=== PATIENT | female | born 1950 | race Caucasian/White ===

== ENCOUNTER 2016-10-24 09:57 | Observation (INO) | payer MEDICARE ==
[2016-10-24] MEDS ORDERED: ACETAMINOPHEN 325 MG TABLET PO ONE (10:28)
[2016-10-24] MEDS ORDERED: ONDANSETRON HCL 4 MG/2 ML VIAL ONE (10:38)
[2016-10-24 10:52] LABS: ALBUMIN 3.6 g/dL (3.5-5.0); ALKALINE PHOSPHATASE 51 U/L (38-126); ALT 42 U/L (9-52); AST 32 U/L (14-36); BILIRUBIN, DIRECT 0.1 mg/dL (0.0-0.4); BILIRUBIN, TOTAL 0.6 mg/dL (0.2-1.3); BLOOD UREA NITROGEN 14 mg/dL (7-17); CALCIUM 8.6 mg/dL (8.4-10.2); CHLORIDE 102 mmol/L (98-107); CREATININE 0.6 mg/dL (0.5-1.0); EST GLOMERULAR FILTRATION RATE > 60 mL/min; GLUCOSE 91 mg/dL (70-100); LIPASE 277 U/L (23-300); POTASSIUM 3.7 mmol/L (3.5-5.1); SODIUM 134 mmol/L (137-145); TOTAL PROTEIN 6.5 g/dL (6.3-8.2)
[2016-10-24 10:58] LABS: INFLUENZA A/B INF A & B NEGATIVE
[2016-10-24 11:03] LABS: TROPONIN I 0.054 ng/mL (0.00-0.034)
[2016-10-24 11:09] LABS: HEMATOCRIT 37.9 % (36.0-48.0); HEMOGLOBIN 12.3 g/dL (12.0-16.0); MEAN CELL VOLUME 87.6 fL (80.0-100.0); MEAN CORPUS. HGB CONCENTRATION 32.4 g/dL (32.0-36.0); MEAN CORPUSCULAR HEMOGLOBIN 28.4 pg (29.0-35.0); MEAN PLATELET VOLUME 6.9 fL (7.4-10.4); PLATELET COUNT 354 X 10^3uL (130-440); RED BLOOD COUNT 4.32 X 10^6uL (4.20-6.10); RED CELL DISTRIBUTION WIDTH 14.6 % (11.5-14.5); WHITE BLOOD COUNT 17.4 X 10^3uL (3.9-10.7)
[2016-10-24 11:10] LABS: BAND% (Manual) 17 % (0.0-1.0); BASOPHIL % (Manual) 0 % (0.0-2.0); EOSINOPHIL % (Manual) 1 % (0.0-6.0); LYMPHOCYTE % (Manual) 19 % (20.0-40.0); METAMYELOCYTE % (Manual) 0 % (0); MONOCYTE % (Manual) 5 % (2.0-10.0)
[2016-10-24 11:11] LABS: NEUTROPHIL % (Manual) 59 % (54.0-75.0); PROMYELOCYTE % (Manual) 0 % (0)
[2016-10-24 11:12] LABS: NUCLEATED RED BLOOD CELL 0 #/100WBC (0-0); PLASMA CELL % (Manual) 0 (0); PLATELET ESTIMATE ADEQUATE
[2016-10-24] MEDS ORDERED: LEVOFLOXACIN/D5W 150 ML IV ONE (12:12)
[2016-10-24] MEDS ORDERED: HOME MEDICATION LIST NEEDED 1 EA EACH MC ONE (13:07)
--- NOTE | 2016-10-24 13:42 | ER PHYSICIAN DOCUMENTATION ---
Physician Documentation [facility] Name:John Mann Age:66 yrs Sex:Female :1950 Arrival Date:10/24/2016 Time:09:57 Bed4 Private MD:Hemanth Segovia ED, Scott Disposition: 10/24/16 12:14 Admit ordered for Hemanth Segovia. Preliminary diagnosis are Diarrhea, Hypoxia, Chest Pain, Leukocytosis- Unspecified. - Bed requested for Medical/Surgical. - Condition is Serious. - Problem is new. - Symptoms have improved. 23 HR OBS No HPI: 10/24 12:04 This 66 yrs old Female presents to ER via Private Vehicle with complaints of sc Nausea/Vomiting/Diarrhea. 12:04 The patient presents to the emergency department with nausea, with diarrhea, that is sc continuous, described as watery, without any complaints of abdominal pain. Onset: The symptom(s)/episode began/occurred yesterday. Possible causes: unknown, antibiotics, bad food exposure, recent hospn for sbo and c. diff, finished vanc 3 weeks ago. Associated signs and symptoms: Pertinent positives: diarrhea, nausea. Severity of symptoms: At their worst the symptoms were severe. Historical: - Allergies: Clindamycin; Sulfa (Sulfonamide Antibiotics); PCN; hydroxychloroquinine; Erythromycin; - Home Meds: 1. Estrace oral 2. rosuvastatin 10 mg oral tab 1 tab once daily 3. nebivolol 5 mg oral tab 1 tab once daily 4. prednisone 2 mg oral TbEC 1 tab once daily 5. aspirin Oral 6. Wilson 5-325 mg oral tab as needed for pain 7. Fluoxetine Oral 8. Synthroid 50 mcg oral tab 9. diclofenac sodium oral 10. cyclobenzaprine Oral 11. calcium carbonate 500 mg calcium (1,250 mg) oral cap - PMHx: LUPUS; osteopenia; CAD; DEPRESSION; ANXIETY; HYPOTHYROIDISM; hyperlipidemia; Bowel Obstruction (September 14, 2016); Myocardial Infarction - non ST elevation (September 14, 2016); - Tetanus: < 10 years. - Ebola Screening: : Patient denies exposure to infectious person. Patient denies travel to an Ebola-affected area in the 21 days before illness onset. . - Immunization history: Flu Vaccine < 1 year. - Social history: Smoking status: Patient states was never smoker of tobacco. Patient/guardian denies using alcohol, marijuana. ROS: 12:05 Eyes: Negative for injury, pain, redness, and discharge. ms ENT: Negative for injury, pain, and discharge. Neck: Negative for injury, pain, and swelling. Cardiovascular: Negative for chest pain, palpitations, and edema. Respiratory: Negative for shortness of breath, cough, wheezing, and pleuritic chest pain. Back: Negative for injury and pain. Skin: Negative for injury, rash, and discoloration. 12:05 Neuro: Negative for headache, weakness, numbness, tingling, and seizure. sc 12:05 Constitutional: Positive for fatigue, malaise. 12:05 Abdomen/GI: Positive for diarrhea, Negative for abdominal distension, dysphagia, hematemesis, black/tarry stool. Exam: Head/Face: Normocephalic, atraumatic. Eyes: Pupils equal round and reactive to light, extra-ocular motions intact. Lids and lashes normal. Conjunctiva and sclera are non-icteric and not injected. Cornea within normal limits. Periorbital areas with no swelling, redness, or edema. Neck: Trachea midline, no thyromegaly or masses palpated, and no cervical lymphadenopathy. Supple, full range of motion without nuchal rigidity, or vertebral point tenderness. No meningismus. Chest/axilla: Normal chest wall appearance and motion. Nontender with no deformity. No lesions are appreciated. Cardiovascular: Regular rate and rhythm with a normal S1 and S2. No gallops, murmurs, or rubs. Normal PMI, no JVD. No pulse deficits. Respiratory: Lungs have equal breath sounds bilaterally, clear to auscultation and percussion. No rales, rhonchi or wheezes noted. No increased work of breathing, no retractions or nasal flaring. Back: No spinal tenderness. No costovertebral tenderness. Full range of motion. 12:06 Neuro: Awake and alert, GCS 15, oriented to person, place, time, and situation. ms Cranial nerves II-XII grossly intact. Motor strength 5/5 in all extremities. Sensory grossly intact. Cerebellar exam normal. Normal gait. 12:06 Constitutional: The patient appears alert, awake, listless. 12:06 ENT: Mouth: Oral mucosa: dry. 12:06 Abdomen/GI: Inspection: abdomen appears normal, Bowel sounds: hyperactive, Palpation: abdomen is soft and non-tender, rebound tenderness, is not appreciated. 12:06 Skin: Turgor: is poor. Vital Signs: 10:15 BP 122 / 37; Pulse 94; Resp 18; Temp 99.2; Pulse Ox 92% on R/A; st 10:32 BP 106 / 48; Pulse 89; Pulse Ox 93% on 2 lpm NC; st 10:52 Temp 101.0; st 11:00 BP 114 / 51; Pulse 87; Pulse Ox 95% 2 lpm ; st 12:00 Pulse 87; Pulse Ox 96% ; st 12:05 Temp 100.7; st 12:30 BP 103 / 39; Pulse 84; Pulse Ox 95% on 2 lpm NC; st 13:00 BP 98 / 31; Pulse 80; Pulse Ox 97% ; st 13:30 BP 92 / 43; Pulse 79; Pulse Ox 96% on R/A; st MDM: 10:36 Patient medically screened. ms 12:07 Differential diagnosis: Nonspecific abd pain, diverticulitis, viral gastroenteritis, sc gastroenteritis, elevated trop and ddimer, wbc 17k ? sepsis or recurrent cdiff and pe?. Data reviewed: vital signs, nurses notes, old medical records, lab test result(s), EKG, and as a result, I will admit patient. Counseling: I had a detailed discussion with the patient and/or guardian regarding: the historical points, exam findings, and any diagnostic results supporting the discharge/admit diagnosis, lab results, radiology results, the need for further work-up and treatment in the hospital. Physician consultation: Hemanth Segovia MD was called at 12:12, was contacted at 12:12, regarding admission, need to come to ED to see patient, and will see patient in ED, shortly. 12:31 ECG:. ms 10/24 10:58 Order name: INFLUENZA A/B [facility] 10/24 11:03 Interpretation: Normal. ms 10/24 11:01 Order name: BASIC METABOLIC PANEL [facility] 10/24 11:03 Interpretation: Normal Except: SODIUM 134. ms 10/24 11:01 Order name: HEPATIC PANEL [facility] 10/24 11:03 Interpretation: Normal. ms 10/24 11:01 Order name: LIPASE [facility] 10/24 11:03 Interpretation: Normal. ms 10/24 11:05 Order name: TROPONIN I [facility] 10/24 11:08 Interpretation: Abnormal: TROPONIN I 0.054. ms 10/24 11:10 Order name: CBC W/ MANUAL DIFFERENTIAL [facility] 10/24 11:32 Interpretation: Abnormal: WHITE BLOOD COUNT 17.4. ms 10/24 11:39 Order name: DDIMER; Complete Time: 12:00 [facility] 10/24 12:00 Interpretation: Abnormal: DDIMER 788. ms 10/24 12:24 Order name: LACTATE; Complete Time: 12:33 [facility] 10/24 12:33 Interpretation: Normal. ms 10/24 10:10 Order name: Iv Saline Lock; Complete Time: 10:34 10/24 10:34 Order name: Oxygen; Complete Time: 10:34 10/24 10:53 Order name: 12-lead EKG; Complete Time: 10:59 ms 10/24 10:53 Order name: Urine Dip; Complete Time: 12:00 ms EC:31 Rate is 89 beats/min. Rhythm is regular. QRS [place] is Normal. MD interval is normal. QRS sc interval is normal. QT interval is normal. No Q waves. T waves are Normal. ST Segment is depressed in leads V2, V3. Clinical impression: Abnormal EKG without significant change. Interpreted by me. Reviewed by me. Dispensed Medications: 10:33 Drug: Acetaminophen 975 mg; Route: PO; st 12:40 Follow up: Response: fever comming down. st 10:34 Drug: NS 0.9% 500 ml; Route: IV; Rate: bolus; Site: left antecubital; st 11:00 Follow up: IV Status: Completed infusion; IV Intake: 1000ml st 10:40 Drug: Zofran 4 mg; Route: IVP; Infused Over: 2 mins; Site: left antecubital; st 12:40 Follow up: Response: Nausea is decreased st 12:05 Drug: Levaquin 750 mg; Route: IVPB; Site: left antecubital; st 13:35 Follow up: IV Status: Completed infusion; IV Intake: 150ml st 13:38 Drug: NS 0.9% 1000 ml; Route: IV; Rate: 150 ml/hr; Site: left antecubital; st 13:38 Follow up: IV Status: Infusion continued upon admission st Point of Care Testing: Urine Dip: 11:32 pH: 7.0; ; Specific K[place]: 1.020; Ketones: Trace; Glucose: Negative; Leukocytes: st Negative; Nitrite: Negative ; Blood: Small (+); Bilirubin: Negative ; Urobilinogen: Normal Signatures: Dena Young, Kelsey Paris RN, RN RN rs Chew, Scott, MD MD ms
--- NOTE | 2016-10-24 13:42 | ER NURSING DOCUMENTATION ---
Nurse's Notes [facility] Name:John Mann Age:66 yrs Sex:Female :1950 Arrival Date:10/24/2016 Time:09:57 Bed4 Private MD:Hemanth Segovia Diagnosis:Diarrhea;Hypoxia;Chest Pain;Leukocytosis- Unspecified Presentation: 10/24 10:11 Presenting complaint: Patient states: pt states she started to have N/D and body aches st yesterday. Symptoms have been getting worst and she feels prity bad now. Transition of care: Home. Notified ED Physician of Dr. Rees notified. 10:11 Acuity: HUMBERTO 3 st 10:11 Method Of Arrival: Private Vehicle st Triage Assessment: 10:13 General: Appears ill, uncomfortable, Behavior is cooperative, Reports feeling ill for st 12-24 hours. Pain: Complains of pain in body aches and headache Unable to use pain scale. when asked to rate her pain she states she feels sick. EENT: Oral mucosa is dry. Neuro: No deficits noted. Cardiovascular: Capillary refill < 3 seconds Heart tones present. Respiratory: Airway is patent Respiratory effort is even, unlabored, Respiratory pattern is regular, symmetrical, Breath sounds are clear bilaterally. Reports cough that is non-productive. GI: Abdomen is flat, non- distended Abd is soft and non tender X 4 quads. Reports diarrhea, nausea. Musculoskeletal: Reports body aches and feeling generally weak. Historical: - Allergies: Clindamycin; Sulfa (Sulfonamide Antibiotics); PCN; hydroxychloroquinine; Erythromycin; - Home Meds: 1. Estrace oral 2. rosuvastatin 10 mg oral tab 1 tab once daily 3. nebivolol 5 mg oral tab 1 tab once daily 4. prednisone 2 mg oral TbEC 1 tab once daily 5. aspirin Oral 6. Lynn 5-325 mg oral tab as needed for pain 7. Fluoxetine Oral 8. Synthroid 50 mcg oral tab 9. diclofenac sodium oral 10. cyclobenzaprine Oral 11. calcium carbonate 500 mg calcium (1,250 mg) oral cap - PMHx: LUPUS; osteopenia; CAD; DEPRESSION; ANXIETY; HYPOTHYROIDISM; hyperlipidemia; Bowel Obstruction (September 14, 2016); Myocardial Infarction - non ST elevation (September 14, 2016); - Tetanus: < 10 years. - Ebola Screening: : Patient denies exposure to infectious person. Patient denies travel to an Ebola-affected area in the 21 days before illness onset. . - Immunization history: Flu Vaccine < 1 year. - Social history: Smoking status: Patient states was never smoker of tobacco. Patient/guardian denies using alcohol, marijuana. Screenin:16 Infectious Disease Risk None. Abuse screen: Denies threats or abuse. Denies injuries st from another. pt feels safe at home. Nutritional screening: No deficits noted. Assessment: 12:00 General: pt color is better. pt interacts more and is feeling better.. st 13:36 General: Dr. Rees informed of dropping BP. . st Vital Signs: 10:15 BP 122 / 37; Pulse 94; Resp 18; Temp 99.2; Pulse Ox 92% on R/A; st 10:32 BP 106 / 48; Pulse 89; Pulse Ox 93% on 2 lpm NC; st 10:52 Temp 101.0; st 11:00 BP 114 / 51; Pulse 87; Pulse Ox 95% 2 lpm ; st 12:00 Pulse 87; Pulse Ox 96% ; st 12:05 Temp 100.7; st 12:30 BP 103 / 39; Pulse 84; Pulse Ox 95% on 2 lpm NC; st 13:00 BP 98 / 31; Pulse 80; Pulse Ox 97% ; st 13:30 BP 92 / 43; Pulse 79; Pulse Ox 96% on R/A; st ED Course: 09:59 Patient arrived in ED. lm3 10:00 Hemanth Segovia MD is Private Physician. lm3 10:05 Dena Young RN is Primary Nurse. st 10:09 Hardy Rees MD is Attending Physician. sc 10:[address] 10:[address] 10:16 Valuables Remains with patient Patient has correct armband on for positive st identification. Bed in low position. Call light in reach. Side rails up X 1. Pulse Ox - RN Monitoring Only NIBP On - RN Monitoring Only. 10:33 Inserted saline lock: 20 gauge in left antecubital area and blood collected. st 10:33 Door closed. Noise minimized. Lights dimmed. Verbal reassurance given. rs 10:34 Oxygen Oxygen administration via nasal cannula @ 2L/min. st 10:38 Resting quietly. rs 11:03 EKG done per protocol. Performed by ED Staff. Shown to ED physician. st 12:12 Hemanth Segovia MD is Admitting Physician. sc Administered Medications: 10:33 Drug: Acetaminophen 975 mg; Route: PO; st 12:40 Follow up: Response: fever comming down. st 10:34 Drug: NS 0.9% 500 ml; Route: IV; Rate: bolus; Site: left antecubital; st 11:00 Follow up: IV Status: Completed infusion; IV Intake: 1000ml st 10:40 Drug: Zofran 4 mg; Route: IVP; Infused Over: 2 mins; Site: left antecubital; st 12:40 Follow up: Response: Nausea is decreased st 12:05 Drug: Levaquin 750 mg; Route: IVPB; Site: left antecubital; st 13:35 Follow up: IV Status: Completed infusion; IV Intake: 150ml st 13:38 Drug: NS 0.9% 1000 ml; Route: IV; Rate: 150 ml/hr; Site: left antecubital; st 13:38 Follow up: IV Status: Infusion continued upon admission st Point of Care Testing: Urine Dip: 11:32 pH: 7.0; ; Specific Burt: 1.020; Ketones: Trace; Glucose: Negative; Leukocytes: st Negative; Nitrite: Negative ; Blood: Small (+); Bilirubin: Negative ; Urobilinogen: Normal Intake: 11:00 IV: 1000ml; Total: 1000ml. st 13:35 IV: 150ml; Total: 1150ml. st Outcome: 12:14 Decision to Admit by Provider. ri 13:39 Admitted to Med/surg accompanied by nurse. st 13:39 Condition: improved 13:39 Instructed on need to admit 13:41 Patient [address] the ED. st Signatures: Dena Young RN RN st Stalker, Rachael, RN RN rs Chew, Scott, MD MD ri Vannessa Monroe lm3
[2016-10-24] MEDS ORDERED: NORMAL SALINE 1,000 ML IV SCH (14:00)
[2016-10-24 14:02] LABS: CKMB 0.82 ng/mL (0.00-2.37)
[2016-10-24 14:03] LABS: TROPONIN I 0.106 ng/mL (0.00-0.034)
[2016-10-24 14:25] LABS: URINE APPEARANCE CLEAR; URINE BILIRUBIN NEGATIVE (NEGATIVE); URINE COLOR YELLOW; URINE GLUCOSE NORMAL (NEGATIVE); URINE KETONE NEGATIVE (NEGATIVE); URINE LEUKOCYTE ESTERASE NEGATIVE (NEGATIVE); URINE NITRITE NEGATIVE (NEGATIVE); URINE PROTEIN NEGATIVE (NEG - TRACE); URINE UROBILINOGEN 0.2mg/dL (Normal) (NEG-1mg/dL)
[2016-10-24 14:26] LABS: URINE BLOOD TRACE (NEGATIVE)
[2016-10-24] MEDS: HYDROcodone/APAP 5/325 MG 1 TAB TABLET PO PRN ×2 (15:03→21:38)
[2016-10-24] MEDS: NEBIVOLOL HCL 10 MG TABLET PO SCH (15:28)
[2016-10-24] MEDS: FLUOXETINE HCL 20 MG CAPSULE PO SCH (15:28)
[2016-10-24] MEDS: NITROGLYCERIN OINT 1 GM PACKET TOPICAL SCH ×2 (15:29→20:54)
--- NOTE | 2016-10-24 16:02 | HISTORY & PHYSICAL ---
DATE OF ADMISSION: 10/24/16 ATTENDING PHYSICIAN: Hemanth Segovia MD CHIEF COMPLAINT: Diarrhea, chest pain. HISTORY OF PRESENT ILLNESS: Patient is a 66-year-old female with coronary artery disease, who had been hospitalized at [facility] about 1 month ago for Clostridium difficile colitis, small bowel obstruction and NSTEMI. Patient was initially on Flagyl and completed a course of Vancomycin about 3 weeks for the Clostridium difficile colitis. She now presents with a 1-day history of abdominal cramps and 5-10 foul liquid nonbloody diarrhea episodes today. This is associated with fatigue and slight nausea and generalized achiness. No vomiting, constipation, abdominal pain, abdominal distention. Having some fevers and chills and feels dehydrated. In addition, she is having mid anterior chest pain radiating straight to her thoracic back. Chest pain does not radiate into the extremities or jaw. There is some shortness of breath and slight nausea but no diaphoresis, pleurisy or pyrosis. 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 ALLERGIES: Penicillin (hives), sulfa (hives), Clindamycin (hives), Hydroxychloroquine (nausea), Ambien (hallucinations). PAST MEDICAL HISTORY 1. Hydrocodone/APAP 5/325 mg 1 tab p.o. q.i.d. PRN (typically takes 3 tabs p.o. daily). 2. Prednisone 1 mg 2-4 tablets p.o. daily (typically takes 2 tabs p.o. daily). 3. Methotrexate2.5 mg 4 tabs p.o. q.week. 4. Crestor 10 mg p.o. q.h.s. 5. Aspirin 81 mg p.o. daily. 6. Multivitamin 1 tab p.o. daily. 7. Bystolic 5 mg p.o. daily. 8. Calcium 500 mg p.o. daily. 9. Levothyroxine 50 mg p.o. daily. 10. Fluoxetine 20 mg p.o. daily. 11. Prilosec 20 mg p.o. b.i.d. 12. Diclofenac 75 mg p.o. b.i.d. PAST MEDICAL HISTORY 1. Coronary artery disease diagnosed 2005 and status post angioplasty x4 vessels in 2006 and recent NSTEMI 09/2016. Previously has been followed by Dr. Carson Luo, who plans to transition to family friend Dr. Burris. 2. Atrophic vaginitis. 3. Small bowel obstruction 09/2016 for which he had NG tube placement. 4. Hypothyroidism. 5. Nocturnal leg cramps. 6. Lupus, diagnosed 1969, followed by Dr. Matt Gibbs ([employer]). 7. Hyperlipidemia. 8. Osteopenia. 9. History of situational depression/anxiety. 10. Elevated lipoprotein A. 11. Left knee replacement 2014. 12. Bilateral cataract surgery 2001. 13. Hysteroscopy and dilation and curettage. 14. L4-L5 spinal fusion surgery 2000 and 2008. SOCIAL HISTORY: , no children. 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 Quit smoking 1988. Social alcohol. FAMILY HISTORY: Paternal grandmother with colon cancer. Paternal aunt with colon cancer. Paternal uncle at 50 of coronary artery disease. Brother with coronary artery disease at 59. Sister with lipoprotein A. Mother at 92 with pneumonia and transient ischemic attack, hypertension and hyperlipidemia. Father had an accidental . REVIEW OF SYSTEMS: No lung, kidney, liver, diabetes, seizures, peptic ulcer disease, skin, allergy or bleeding disorders. No urinary problems. PREVENTATIVE HEALTH: Tdap 2012. Had Pneumovax but is due for a repeat. Due for Prevnar. Gets annual flu shot. Zostavax 2012. PHYSICAL EXAMINATION VITAL SIGNS: See Emergency Room records for vital signs. Room air pulse oxygenation was 83% and patient is currently on oxygen at 2 liters per minute by nasal prongs. GENERAL: Well-nourished, well developed female, NAD, alert and oriented x3. HEENT: EOMI. PERRLA. Fundi difficult to visualize. Normal conjunctivae. TMs normal. No coryza. Pharynx not injected. NECK: No lymphadenopathy. No thyromegaly. No carotid bruits. Neck supple. CHEST: Clear. No rales, rhonchi or wheezes. Good breath sounds and symmetry throughout. COR: RRR without murmurs, gallops, rubs or clicks. No jugular venous distention. No ectopy. ABDOMEN: Soft, minimal periumbilical abdominal tenderness on deep palpation. No guarding or rebound tenderness. No hepatosplenomegaly. No masses. No bruits. No inguinal nodes. Bowel sounds present. No left lower quadrant abdominal tenderness. LOWER EXTREMITIES: No edema. Peripheral pulses present. SKIN: Normal skin turgor. NEUROLOGIC: Cranial nerves 2-12 intact. Motor 5/5. Sensory intact. LABORATORY DATA: White blood cell count 17.4 with 59% neutrophils, 17% bands, 19 % lymphocytes, 5% monocytes. Hemoglobin and hematocrit 12.3/37.9, platelets 354, 000. D-Dimer 788. Sodium 134, potassium 3.7, chloride 102, CO2 25, BUN 14, creatinine 0.6, glucose 91, lactic acid 0.9, calcium 8.6, total bilirubin 0.6, AST 32, ALT 42, alkaline phosphatase 51, troponin I 0.054. Total protein 6.5, albumin 3.6, lipase 277. Quick flu negative. Urine stool cultures pending. Blood cultures pending. EKG: Normal sinus rhythm with [address] depression in lead V3-V4. IMAGING: Chest CT scan with pulmonary embolism protocol pending. ASSESSMENT 1. Acute diarrhea rule out Clostridium difficile colitis, recurrent. Patient took a course of Flagyl and then completed a full course of Vancomycin, but is now symptomatic once again. 2. Chest pain differential diagnosis includes ischemic heart disease, aortic aneurysm, gastroesophageal reflux disease, pulmonary embolism, etc. 3. Positive D-dimer, rule out pulmonary embolism. 4. Hypoxia. 5. Hypertension. 6. Hyperlipidemia. 7. Gastroesophageal reflux disease. 8. Lupus with history of lupus-induced pericarditis. PLAN 1. Stool C&S, Giardia and Clostridium difficile. 2. Positive Clostridium difficile is not necessarily with the presence of Clostridium difficile in that patient did have documented Clostridium difficile about a month ago. However, on his presentation, I will probably go ahead and treat with appropriate antibiotics for Clostridium difficile it that is the case. 3. Telemetry, oxygen, IV hep lock. 4. Serial EKGs and cardiac enzymes. 5. Cardiology consultation. 6. Chest CT scan with pulmonary embolism protocol. 7. IV hydration with normal saline 125 mL per hour in light of diarrhea. Copies to: Dr. Murray, Dr. Burris [facility]
--- NOTE | 2016-10-24 16:24 | CONSULTATION ---
DATE OF CONSULTATION: 10/24/16 REASON FOR CONSULTATION: Chest pain, elevated troponin. CONSULTING POWERBUILDER: Aimee Kent MD CONSULTING PHYSICIAN: Hemanth Segovia MD HISTORY OF PRESENT ILLNESS: This is a 66-year-old female with a history of coronary artery disease, status post percutaneous coronary intervention with 4 stents 2005, recent non-ST elevation myocardial infarction 09/2006 with a peak troponin 1.56, thought to be secondary to demand ischemia, hypertension, dyslipidemia presented to the Emergency Room not feeling well. She reports some diarrhea, but also some chest pain. She reports having intermittent chest pain ever since her hospitalization in September. She describes it as a left substernal sharp pain that radiates straight through to her back and feels worse when lying down. Last night she had some chest pain and also felt short of breath at night and noted some palpitations. Since her hospitalization, she did try to go for a walk and noted some dyspnea on exertion, but the second day she went for a walk, she felt better. She denies orthopnea or lower extremity edema. She has had some intermittent lightheadedness. PAST MEDICAL HISTORY 1. Coronary artery disease as described above. 2. Hypertension. 3. Dyslipidemia. 4. Lupus. 5. Recent hospitalization for small bowel obstruction. 6. Patient denies any history of lung disease, stroke or clotting disorder. OUTPATIENT MEDICATIONS: Reviewed. ALLERGIES: Multiple including Clindamycin, Erythromycin, Hydroxychloroquine, penicillin, sulfa. SOCIAL HISTORY: She quit smoking in 1988. She has 2 caffeinated beverages daily and rare alcohol intake. FAMILY HISTORY: Negative for premature coronary artery disease. REVIEW OF SYSTEMS GENERAL: Reports fatigue. HEENT: Reports headaches. EYES: Denies blurry vision. RESPIRATORY: Denies cough. GI: Reports diarrhea. : Denies dysuria. MUSCULOSKELETAL: Reports arthralgias in her hands. NEUROLOGIC: Denies numbness. HEME: Denies easy bruising. ENDOCRINE: Denies temperature changes. PSYCH: Denies mood changes. PHYSICAL EXAMINATION VITAL SIGNS: Reviewed. GENERAL: Well-nourished, well-developed in no acute distress. Speaking in complete sentences without difficulty. HEENT: Normal. EYES: Normal. NECK: Unable to visualize JVP. No carotid bruits. Normal thyroid. HEART: Regular rate and rhythm with no murmurs, rubs or gallops. LUNGS: Clear to auscultation bilaterally. ABDOMEN: Nondistended. EXTREMITIES: No edema. 2+ radial pulses. Normal tone. SKIN: No rashes. NEURO: Alert. LABORATORY DATA: White blood cell count 17.4, hemoglobin 12.3, D-Dimer 788, sodium 134, potassium 3.7, creatinine 0.6. December 2014, carotid ultrasound bilateral 1-15% ICA stenosis. September 2016, echocardiogram EF 60-65% with mild MR. September 2016, a chemical nuclear stress test, left circumflex myocardial infarction with moderate hola-infarct ischemia. IMPRESSION 1. Chest pain. 2. Minimally elevated troponin. 3. Coronary artery disease, status post percutaneous coronary intervention with 4 stents 2005. Recent non-ST elevation myocardial infarction 09/2016 with peak troponin 1.56, thought to be demand ischemia. 4. Hypertension. 5. Dyslipidemia. 6. Lupus. 7. Diarrhea. 8. Leukocytosis. 9. Elevated D-Dimer. PLAN: I reviewed all of her recent cardiac workup including several EKGs. She has had ongoing chest pain and while I do not think that she is necessarily having an acute coronary syndrome, I think she will require left heart catheterization/coronary angiogram in the near future. Ideally, this would be performed as an outpatient once her GI issues, including the recent small bowel obstruction and the presentation with diarrhea, as well as leukocytosis have been resolved. I agree with her admission, to be monitored on telemetry with serial cardiac enzymes. If her troponin does not rise significantly, I think she could be discharged home on medical therapy with close follow up and plans for an outpatient left heart catheterization/coronary angiogram. I will have Dr. Murray re-evaluate patient in the a.m. [facility]
[2016-10-24] MEDS: PANTOPRAZOLE 40 MG TABLET PO SCH (18:57)
[2016-10-24] MEDS: [UNRECOGNIZED DRUG - REMARK] PO SCH (19:00)
[2016-10-24] MEDS: NORMAL SALINE 1,000 ML IV SCH (20:56)
[2016-10-24] MEDS ORDERED: ROSUVASTATIN CALCIUM 20 MG TABLET PO SCH (21:00)
[2016-10-24 22:17] LABS: CKMB 2.44 ng/mL (0.00-2.37)
[2016-10-24 22:39] LABS: TROPONIN I 0.318 ng/mL (0.00-0.034)
[2016-10-24 23:28] VITALS: RESP 16
[2016-10-25] MEDS: LEVOTHYROXINE 50 MCG TABLET PO SCH ×2 (02:00→06:10)
[2016-10-25] MEDS: NITROGLYCERIN OINT 1 GM PACKET TOPICAL SCH ×4 (02:04→13:35)
[2016-10-25] MEDS ORDERED: NITROGLYCERIN OINT 1 GM PACKET ONE (02:12)
[2016-10-25] MEDS: HYDROcodone/APAP 5/325 MG 1 TAB TABLET PO PRN ×2 (04:46→09:59)
[2016-10-25 05:32] LABS: BASOPHILS 0.1 % (0.0-2.0); HEMOGLOBIN 9.6 g/dL (12.0-16.0); LYMPHOCYTES 14.7 % (20.0-40.0); LYMPHOCYTES# 1.8 X 10^3uL (0.8-3.8); MEAN CELL VOLUME 89.4 fL (80.0-100.0); MEAN CORPUS. HGB CONCENTRATION 31.9 g/dL (32.0-36.0); MEAN CORPUSCULAR HEMOGLOBIN 28.5 pg (29.0-35.0); MEAN PLATELET VOLUME 6.9 fL (7.4-10.4); MONOCYTES 4.9 % (2.0-10.0); MONOCYTES# 0.6 X 10^3uL (0.2-1.0); NEUTROPHILS 80.3 % (54.0-75.0); NEUTROPHILS# 9.6 X 10^3uL (2.6-6.7); RED BLOOD COUNT 3.35 X 10^6uL (4.20-6.10); RED CELL DISTRIBUTION WIDTH 14.6 % (11.5-14.5); WHITE BLOOD COUNT 12.1 X 10^3uL (3.9-10.7)
[2016-10-25 05:38] LABS: ALBUMIN 2.7 g/dL (3.5-5.0); ALKALINE PHOSPHATASE 37 U/L (38-126); ALT 35 U/L (9-52); AST 27 U/L (14-36); BILIRUBIN, TOTAL 0.4 mg/dL (0.2-1.3); BLOOD UREA NITROGEN 11 mg/dL (7-17); CALCIUM 7.9 mg/dL (8.4-10.2); CHLORIDE 109 mmol/L (98-107); CREATININE 0.5 mg/dL (0.5-1.0); EST GLOMERULAR FILTRATION RATE > 60 mL/min; GLUCOSE 98 mg/dL (70-100); POTASSIUM 3.9 mmol/L (3.5-5.1); SODIUM 137 mmol/L (137-145); TOTAL PROTEIN 5.3 g/dL (6.3-8.2)
[2016-10-25] MEDS: NORMAL SALINE 1,000 ML IV SCH (06:10)
[2016-10-25] MEDS: PANTOPRAZOLE 40 MG TABLET PO SCH ×2 (06:10→16:54)
[2016-10-25 07:45] LABS: CKMB 2.68 ng/mL (0.00-2.37)
[2016-10-25 07:49] LABS: TROPONIN I 0.214 ng/mL (0.00-0.034)
[2016-10-25] MEDS: [UNRECOGNIZED DRUG - REMARK] PO SCH ×2 (08:02→17:06)
[2016-10-25] MEDS: NEBIVOLOL HCL 10 MG TABLET PO SCH (08:04)
[2016-10-25] MEDS: FLUOXETINE HCL 20 MG CAPSULE PO SCH (08:08)
--- NOTE | 2016-10-25 09:26 | PROGRESS NOTE: IM SOAP ---
IM: PN Subjective Cardiovascular: no chest pain Respiratory: no SOB Gastrointestinal: no abdominal pain, no nausea, no vomiting, no diarrhea IM: PN Objective Exam - I&O/Vital Signs I&O: Intake & Output 10/24/16 10/25/16 10/25/16 21:59 05:59 13:59 Intake Total 460 1500 Output Total 1200 850 Balance -740 650 Weight 48.5 kg 50.984 kg Intake: IV 1250 Left Antecubital 1250 Oral 460 250 Output: Urine 1200 850 Other: Urine Appearance Clear Clear Urine Color Pale Yellow Yellow Voiding Method Toilet Toilet # Voids 3 2 # Bowel Movements 0 0 Vital Signs: Last Vital Signs Temp 36.3 C L 10/25/16 06:29 Pulse 65 10/25/16 06:29 Resp 16 10/25/16 06:29 BP 101/45 10/25/16 06:29 Pulse Ox 95 10/25/16 06:29 Oxygen Flow Rate 1.5 Oxygen Delivery Method Nasal Cannula - ENT ENT exam: Absent: mucous membranes dry - Respiratory Respiratory exam: Present: clear - Cardiovascular Cardiovascular exam: Present: RRR. Absent: systolic murmur - GI/Abdominal GI/Abdominal exam: Present: soft. Absent: tenderness - Extremities Exam Extremities exam: Absent: calf tenderness, Glenny's Sign, edema - Lab Labs: Laboratory Last Values WBC 12.1 X 10^3uL (3.9-10.7) H 10/25/16 05:00 RBC 3.35 X 10^6uL (4.20-6.10) L 10/25/16 05:00 Hgb 9.6 g/dL (12.0-16.0) L 10/25/16 05:00 Hct 30.0 % (36.0-48.0) L 10/25/16 05:00 MCV 89.4 fL (80.0-100.0) 10/25/16 05:00 MCH 28.5 pg (29.0-35.0) L 10/25/16 05:00 MCHC 31.9 g/dL (32.0-36.0) L 10/25/16 05:00 RDW 14.6 % (11.5-14.5) H 10/25/16 05:00 Plt Count 268 X 10^3uL (130-440) 10/25/16 05:00 MPV 6.9 fL (7.4-10.4) L 10/25/16 05:00 Total Counted 100 10/24/16 10:10 Neutrophils % 80.3 % (54.0-75.0) H 10/25/16 05:00 Neutrophils % (Manual) 59 % (54.0-75.0) 10/24/16 10:10 Band Neuts % (Manual) 17 % (0.0-1.0) H 10/24/16 10:10 Lymphocytes % 14.7 % (20.0-40.0) L 10/25/16 05:00 Lymphocytes % (Manual) 19 % (20.0-40.0) L 10/24/16 10:10 Atypical Lymphs % (Man) 0 % 10/24/16 10:10 Monocytes % (Manual) 5 % (2.0-10.0) 10/24/16 10:10 Eosinophils % 0.0 % (0.0-6.0) 10/25/16 05:00 Eosinophils % (Manual) 1 % (0.0-6.0) 10/24/16 10:10 Basophils % 0.1 % (0.0-2.0) 10/25/16 05:00 Basophils % (Manual) 0 % (0.0-2.0) 10/24/16 10:10 Metamyelocytes % (Man) 0 % (0) 10/24/16 10:10 Promyelocytes % (Man) 0 % (0) 10/24/16 10:10 Blast Cells % (Manual) 0 % (0) 10/24/16 10:10 Plasma Cell % (Manual) 0 (0) 10/24/16 10:10 Neutrophils # 9.6 X 10^3uL (2.6-6.7) H 10/25/16 05:00 Lymphocytes # 1.8 X 10^3uL (0.8-3.8) 10/25/16 05:00 Monocytes 4.9 % (2.0-10.0) 10/25/16 05:00 Monocytes # 0.6 X 10^3uL (0.2-1.0) 10/25/16 05:00 Eosinophils # 0.0 X 10^3uL (0.0-0.4) 10/25/16 05:00 Basophils # 0.0 X 10^3uL (0.0-0.1) 10/25/16 05:00 Nucleated RBCs 0 #/100WBC (0-0) 10/24/16 10:10 Platelet Estimate Adequate 10/24/16 10:10 D-Dimer 788 ng/mL H* 10/24/16 10:10 Sodium 137 mmol/L (137-145) 10/25/16 05:00 Potassium 3.9 mmol/L (3.5-5.1) 10/25/16 05:00 Chloride 109 mmol/L (98-107) H 10/25/16 05:00 Carbon Dioxide 22 mmol/L (22-30) 10/25/16 05:00 BUN 11 mg/dL (7-17) 10/25/16 05:00 Creatinine 0.5 mg/dL (0.5-1.0) 10/25/16 05:00 GFR Calculation > 60 mL/min 10/25/16 05:00 Glucose 98 mg/dL (70-100) 10/25/16 05:00 Lactic Acid 0.9 mmol/L (0.7-2.1) 10/24/16 11:50 Calcium 7.9 mg/dL (8.4-10.2) L 10/25/16 05:00 Total Bilirubin 0.4 mg/dL (0.2-1.3) 10/25/16 05:00 Direct Bilirubin 0.1 mg/dL (0.0-0.4) 10/24/16 10:10 AST 27 U/L (14-36) 10/25/16 05:00 ALT 35 U/L (9-52) 10/25/16 05:00 Alkaline Phosphatase 37 U/L (38-126) L 10/25/16 05:00 Creatine Kinase 62 U/L (30-135) 10/25/16 05:14 CK-MB (CK-2) 2.68 ng/mL (0.00-2.37) H 10/25/16 05:14 Troponin I 0.214 ng/mL (0.00-0.034) H* 10/25/16 05:14 Total Protein 5.3 g/dL (6.3-8.2) L 10/25/16 05:00 Albumin 2.7 g/dL (3.5-5.0) L D 10/25/16 05:00 Albumin/Globulin Ratio 1.0 10/25/16 05:00 Lipase 277 U/L (23-300) 10/24/16 10:10 Urine Color Yellow 10/24/16 14:00 Urine Appearance Clear 10/24/16 14:00 Urine pH 7.0 (5-7) 10/24/16 14:00 Ur Specific [place] 1.010 (0.001-1.035) 10/24/16 14:00 Urine Protein Negative (NEG - TRACE) 10/24/16 14:00 Urine Ketones Negative (NEGATIVE) 10/24/16 14:00 Urine Blood Trace (NEGATIVE) A 10/24/16 14:00 Urine Nitrate Negative (NEGATIVE) 10/24/16 14:00 Urine Bilirubin Negative (NEGATIVE) 10/24/16 14:00 Urine Urobilinogen 0.2mg/dl (normal) (NEG-1mg/dL) 10/24/16 14:00 Ur Leukocyte Esterase Negative (NEGATIVE) 10/24/16 14:00 Urine Glucose Normal (NEGATIVE) 10/24/16 14:00 Influenza Types A,B Ag Inf a & b negative 10/24/16 10:10 Assessment and Plan - Date of Encounter Date of Encounter: 10/25/16 (1) Elevated troponin I level Status: Acute Assessment and plan: Card consult pending Current Visit: Yes (2) Chest pain Status: Acute Assessment and plan: Elevated TropI. Normal CPK, MB. Card consult pending Current Visit: No (3) CAD (coronary artery disease) Status: Acute Current Visit: No (4) Acute diarrhea Status: Resolved Assessment and plan: Adv diet Current Visit: Yes (5) Dehydration Status: Resolved Current Visit: No (6) Lupus Status: Acute Current Visit: No (7) D-dimer, elevated Status: Acute Current Visit: Yes (8) HTN (hypertension) Status: Acute Current Visit: Yes (9) Hyperlipidemia Status: Acute Current Visit: Yes - Time Spent With Patient Total time spent with greater than 50% in coordination of care (as documented) at patient's floor/unit and/or counseling patient: Quality Questions - VTE Prophylaxis Assessment VTE Present on Admission?: No Patient at risk for venous thromboembolism?: No VTE Risk Level: Low Risk VTE Medical Contraindication: Treatment not indicated
--- NOTE | 2016-10-25 10:24 | PROGRESS NOTE: IM APSO ---
Assessment and Plan - Date of Encounter Date of Encounter: 10/25/16 (1) Elevated troponin I level Status: Acute Assessment and plan: Suitable for discharge today. Continue beta stacy, asa, and statin. Will schedule outpatient cardiac cath on monday. Current Visit: Yes (2) HTN (hypertension) Status: Acute Current Visit: Yes (3) Hyperlipidemia Status: Acute Current Visit: Yes (4) CAD (coronary artery disease) Status: Acute Current Visit: No - Time Spent With Patient Total time spent with greater than 50% in coordination of care (as documented) at patient's floor/unit and/or counseling patient: IM: PN Subjective Cardiovascular: no chest pain Respiratory: no SOB IM: PN Objective Exam - I&O/Vital Signs I&O: Intake & Output 10/24/16 10/25/16 10/25/16 21:59 05:59 13:59 Intake Total 460 1500 Output Total 1200 850 Balance -740 650 Weight 48.5 kg 50.984 kg Intake: IV 1250 Left Antecubital 1250 Oral 460 250 Output: Urine 1200 850 Other: Urine Appearance Clear Clear Clear Urine Color Pale Yellow Yellow Yellow Voiding Method Toilet Toilet # Voids 3 2 # Bowel Movements 0 0 Vital Signs: Last Vital Signs Temp 36.3 C L 10/25/16 06:29 Pulse 65 10/25/16 06:29 Resp 16 10/25/16 09:00 BP 101/45 10/25/16 06:29 Pulse Ox 95 10/25/16 09:00 Oxygen Flow Rate 1.5 Oxygen Delivery Method Nasal Cannula - Respiratory Respiratory exam: Present: clear - Cardiovascular Cardiovascular exam: Present: RRR. Absent: systolic murmur - GI/Abdominal GI/Abdominal exam: Present: soft. Absent: tenderness - Extremities Exam Extremities exam: Absent: edema - Lab Labs: Laboratory Last Values WBC 12.1 X 10^3uL (3.9-10.7) H 10/25/16 05:00 RBC 3.35 X 10^6uL (4.20-6.10) L 10/25/16 05:00 Hgb 9.6 g/dL (12.0-16.0) L 10/25/16 05:00 Hct 30.0 % (36.0-48.0) L 10/25/16 05:00 MCV 89.4 fL (80.0-100.0) 10/25/16 05:00 MCH 28.5 pg (29.0-35.0) L 10/25/16 05:00 MCHC 31.9 g/dL (32.0-36.0) L 10/25/16 05:00 RDW 14.6 % (11.5-14.5) H 10/25/16 05:00 Plt Count 268 X 10^3uL (130-440) 10/25/16 05:00 MPV 6.9 fL (7.4-10.4) L 10/25/16 05:00 Total Counted 100 10/24/16 10:10 Neutrophils % 80.3 % (54.0-75.0) H 10/25/16 05:00 Neutrophils % (Manual) 59 % (54.0-75.0) 10/24/16 10:10 Band Neuts % (Manual) 17 % (0.0-1.0) H 10/24/16 10:10 Lymphocytes % 14.7 % (20.0-40.0) L 10/25/16 05:00 Lymphocytes % (Manual) 19 % (20.0-40.0) L 10/24/16 10:10 Atypical Lymphs % (Man) 0 % 10/24/16 10:10 Monocytes % (Manual) 5 % (2.0-10.0) 10/24/16 10:10 Eosinophils % 0.0 % (0.0-6.0) 10/25/16 05:00 Eosinophils % (Manual) 1 % (0.0-6.0) 10/24/16 10:10 Basophils % 0.1 % (0.0-2.0) 10/25/16 05:00 Basophils % (Manual) 0 % (0.0-2.0) 10/24/16 10:10 Metamyelocytes % (Man) 0 % (0) 10/24/16 10:10 Promyelocytes % (Man) 0 % (0) 10/24/16 10:10 Blast Cells % (Manual) 0 % (0) 10/24/16 10:10 Plasma Cell % (Manual) 0 (0) 10/24/16 10:10 Neutrophils # 9.6 X 10^3uL (2.6-6.7) H 10/25/16 05:00 Lymphocytes # 1.8 X 10^3uL (0.8-3.8) 10/25/16 05:00 Monocytes 4.9 % (2.0-10.0) 10/25/16 05:00 Monocytes # 0.6 X 10^3uL (0.2-1.0) 10/25/16 05:00 Eosinophils # 0.0 X 10^3uL (0.0-0.4) 10/25/16 05:00 Basophils # 0.0 X 10^3uL (0.0-0.1) 10/25/16 05:00 Nucleated RBCs 0 #/100WBC (0-0) 10/24/16 10:10 Platelet Estimate Adequate 10/24/16 10:10 D-Dimer 788 ng/mL H* 10/24/16 10:10 Sodium 137 mmol/L (137-145) 10/25/16 05:00 Potassium 3.9 mmol/L (3.5-5.1) 10/25/16 05:00 Chloride 109 mmol/L (98-107) H 10/25/16 05:00 Carbon Dioxide 22 mmol/L (22-30) 10/25/16 05:00 BUN 11 mg/dL (7-17) 10/25/16 05:00 Creatinine 0.5 mg/dL (0.5-1.0) 10/25/16 05:00 GFR Calculation > 60 mL/min 10/25/16 05:00 Glucose 98 mg/dL (70-100) 10/25/16 05:00 Lactic Acid 0.9 mmol/L (0.7-2.1) 10/24/16 11:50 Calcium 7.9 mg/dL (8.4-10.2) L 10/25/16 05:00 Total Bilirubin 0.4 mg/dL (0.2-1.3) 10/25/16 05:00 Direct Bilirubin 0.1 mg/dL (0.0-0.4) 10/24/16 10:10 AST 27 U/L (14-36) 10/25/16 05:00 ALT 35 U/L (9-52) 10/25/16 05:00 Alkaline Phosphatase 37 U/L (38-126) L 10/25/16 05:00 Creatine Kinase 62 U/L (30-135) 10/25/16 05:14 CK-MB (CK-2) 2.68 ng/mL (0.00-2.37) H 10/25/16 05:14 Troponin I 0.214 ng/mL (0.00-0.034) H* 10/25/16 05:14 Total Protein 5.3 g/dL (6.3-8.2) L 10/25/16 05:00 Albumin 2.7 g/dL (3.5-5.0) L D 10/25/16 05:00 Albumin/Globulin Ratio 1.0 10/25/16 05:00 Lipase 277 U/L (23-300) 10/24/16 10:10 Urine Color Yellow 10/24/16 14:00 Urine Appearance Clear 10/24/16 14:00 Urine pH 7.0 (5-7) 10/24/16 14:00 Ur Specific [place] 1.010 (0.001-1.035) 10/24/16 14:00 Urine Protein Negative (NEG - TRACE) 10/24/16 14:00 Urine Ketones Negative (NEGATIVE) 10/24/16 14:00 Urine Blood Trace (NEGATIVE) A 10/24/16 14:00 Urine Nitrate Negative (NEGATIVE) 10/24/16 14:00 Urine Bilirubin Negative (NEGATIVE) 10/24/16 14:00 Urine Urobilinogen 0.2mg/dl (normal) (NEG-1mg/dL) 10/24/16 14:00 Ur Leukocyte Esterase Negative (NEGATIVE) 10/24/16 14:00 Urine Glucose Normal (NEGATIVE) 10/24/16 14:00 Influenza Types A,B Ag Inf a & b negative 10/24/16 10:10
[2016-10-25 15:36] VITALS: BP 113/42; PULSE 68; TEMP 98; O2SAT 96
--- NOTE | 2016-10-26 06:58 | DISCHARGE SUMMARY ---
DATE OF ADMISSION: 10/24/16 DATE OF DISCHARGE: 10/25/16 ATTENDING PHYSICIAN: Hemanth Segovia MD DIAGNOSES 1. Chest pain. 2. Coronary artery disease. 3. Elevated troponin I. 4. Elevated D-Dimer pulmonary embolism ruled out. 5. Hypoxia, resolved. 6. Acute diarrhea. 7. Dehydration. 8. Hypertension. 9. Hyperlipidemia. 10. Gastroesophageal reflux disease. 11. Lupus with history of lupus-induced pericarditis. CONSULTATION: Continuous Improvement Lead Dr. Kent, Dr. Murray. PROCEDURE: Chest CT scan with pulmonary embolism protocol. HISTORY OF PRESENT ILLNESS: This is a 66-year-old female with coronary artery disease, who had been hospitalized at [facility] [place] about 1 month ago for Clostridium difficile colitis, small bowel obstruction and NSTEMI. Patient was initially on Flagyl and subsequently completed a course of Vancomycin about 3 weeks prior to admission for the Clostridium difficile colitis. Patient now presented to the Emergency Room with a 1-day history of abdominal cramps and 5-10 foul liquid nonbloody diarrhea episodes on the day of admission. This was associated with fatigue, slight nausea and generalized achiness. No vomiting, constipation, abdominal pain or abdominal distention. She had some fevers and chills and felt dehydrated. In addition, she was having mid anterior chest pain radiating straight to her thoracic spine. Chest pain does not radiate into the extremities or jaw. There was some shortness of breath and slight nausea but no diaphoresis, pleurisy or pyrosis. 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 Patient has a history of gastroesophageal reflux disease but had no pyrosis. Please see previously dictated history and physical for further details. HOSPITAL COURSE: The patient was admitted with acute diarrhea. Antibiotics were held for now. Patient had no further diarrhea until the afternoon of discharge, and stool cultures had been sent for C&S, giardia and Clostridium difficile. If Clostridium difficile comes back positive, then the presence of Clostridium difficile would be indeterminate in that we would expect the Clostridium difficile test to remain positive for at least a month. However, if the test comes back negative, that would be helpful. If the diarrhea resolves spontaneously, we will hold off on antibiotics, but if the diarrhea starts to worsen once again, will need to consider p.o. antibiotics on an outpatient basis for potential Clostridium difficile colitis. Did hydrate the patient with normal saline during her stay for dehydration. In addition, patient was admitted for chest pain and was ruled out for myocardial infarction. CPK and MB were low with readings of 43, 61, and 62 as well as 0.82, 2.44, 2.68 respectively. Troponin I however was elevated at 0.054 , 0.106, 0.318, and 0.214; it was felt that this was synonymous with strain of the heart, but it was not felt that the patient had another myocardial infarction. Also, D-Dimer was elevated at 788 on admission, but chest CT scan showed no evidence of pulmonary embolism. Chest CT scan report is still pending at this time, but apparently did show an element of nonspecific pneumonitis in the base. EKG showed a 1-mm ST depression in leads V3-V4; no evidence of pericarditis on EKG. Patient did have one additional episode of chest pain the afternoon of discharge, consisting of 5/10 midsternal chest pain radiating towards the back, but not associated with shortness of breath, nausea, diaphoresis or other anginal symptoms. It occurred while she was lying down in a somewhat position with increased intraabdominal pressure, and there was some vague epigastric discomfort associated with this; symptoms are more suggestive of gastroesophageal reflux disease than they were of cardiac cause or symptoms. Symptoms did respond to a single Nitroglycerin sublingual tablet. At the time of the discharge, patient was completely pain free. Cardiology consultation was provided by Dr. Aimee Kent and Dr. Cortes Murray during the patient's stay. Arrangements have been made for the patient to have a cardiac catheterization this Monday. Also, patient was hypoxic on admission with room air pulse oxygenation 83%. However, by the time she was discharged room air pulse oximetry reading were greater than 90%. No home oxygen was felt to be warranted. DISCHARGE INSTRUCTIONS: Patient may participate in activities as able and was encouraged to ambulate 3 times a day and be up in a chair 3 times a day. She is on a cardiac diet. She will have a follow up appointment with Dr. Murray and have cardiac catheterization on Monday, in days from now. DISCHARGE MEDICATIONS Nitroglycerin 0.4 mg sublingual q.5 minutes PRN chest pain if no improvement in chest pain after 3 Nitroglycerin tablets, patient is to call 911 and to go to the Emergency Room for further evaluation. Prednisone 10 mg 2 tabs p.o. daily for 1 week, then 10 mg 1 tab p.o. daily for 1 week, then resume 2 mg p.o. daily (stress doses of steroids). Aspirin 81 mg p.o. daily. Bystolic 5 mg p.o. daily. Calcium carbonate 500 mg p.o. daily. Crestor 10 mg p.o. q.h.s. Diclofenac 75 mg p.o. b.i.d. Cyclobenzaprine 10 mg p.o. t.i.d. PRN. Methotrexate 2.5 mg 4 tabs p.o. q.week. Hydrocodone/APAP 5/325 mg 1 tab p.o. q.i.d. PRN pain. Omeprazole 20 mg p.o. b.i.d. Fluoxetine 20 mg p.o. daily. Levothyroxine 50 mcg p.o. daily. Multivitamin 1 tab p.o. daily. Copies to: Dr. Murray, Dr. [place] TRINH
--- NOTE | 2016-10-26 08:14 | CT REPORT ---
HISTORY: Chest pain and positive d-dimer COMPARISON: 12/01/2015 TECHNIQUE: This examination was performed using automated exposure control, adjustment of mA or kV according to patient size, and/or use of iterative reconstruction technique. Axial CT imaging from the thoracic inlet through the upper abdomen following administration of IV contrast during peak opacification of the pulmonary arteries, multiplanar reformatted and 3-D images are evaluated. 100cc Isovue 370 contrast. FINDINGS: The pulmonary arteries enhance normally and show no evidence for acute embolism. There is no pulmonary artery enlargement. The ascending thoracic aorta is mildly dilated to 3.1 cm. The heart remains mildly enlarged. Coronary artery calcifications are extensive. No enlarged lymph nodes are demonstrated. There is mild bibasal atelectasis. Areas of mild groundglass density involving the right lower lobe, without focal consolidation. There is no pleural effusion or pulmonary nodule. The chest wall appears intact. No suspicious bony lesion has developed. Imaged portions of the upper abdomen are unremarkable. IMPRESSION: 1. Negative for acute pulmonary embolism. 2. Groundglass densities in the right lower lobe, without consolidation. Distended caused by mild pneumonitis. 3. Cardiomegaly and extensive coronary artery calcifications, due to atherosclerotic disease. This report was personally discussed with Dr. Lopez on 10/24/2016 at 2:45 PM. Final Electronic Signature: This report was electronically signed by Justice Godfrey MD on 10/24/2016 2:50 PM. [email or web address] / [email or web address]
== END 2016-10-25 18:57 | disposition home or self-care (01) ==
LOC: ER 09:57 → IN 13:25
PROVIDERS: ADMIT Family Medicine; ATTEND Family Medicine
DX: R07.89 Other chest pain (principal); A04.7 Enterocolitis due to Clostridium difficile; E86.0 Dehydration; R09.02 Hypoxemia; R19.7 Diarrhea, unspecified; I10 Essential (primary) hypertension; E78.5 Hyperlipidemia, unspecified; K21.9 Gastro-esophageal reflux disease without esophagitis; I25.10 Atherosclerotic heart disease of native coronary artery without angina pectoris; L93.2 Other local lupus erythematosus; Z79.899 Other long term (current) drug therapy; Z79.82 Long term (current) use of aspirin
CPT/HCPCS: 36415; 71275; 80048; 80053; 80076; 81003; 82550; 82553; 83605; 83690; 84484; 85007; 85025; 85027; 85379; 87040; 87188; 87329; 87449; 87493; 87899; 93005; 93010; 93041; 96365; 96375; 99214; 99285; G0378; G8978; G8979; G8980; J1956; J2405; J7030; J7512